=== PATIENT | female | born 1980 | race Caucasian/White ===

== ENCOUNTER 2025-10-25 11:05 | Emergency (ER) | payer BC ==
[~2025-10-25] VITALS: Ht 160 cm; Wt 61.5 kg
--- NOTE | 2025-10-25 11:37 | ELECTROCARDIOGRAPH REPORT ---
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
[2025-10-25 11:46] LABS: MEAN PLATELET VOLUME 8.1 FL (7.4-10.4); RED CELL DISTRIBUTION WIDTH 13.2 % (11.5-14.5)
[2025-10-25] MEDS: normal saline 1000ML IV soln IVB ONE (11:54)
[2025-10-25 12:12] LABS: CREATININE 0.77 MG/DL (0.40-0.90); TOTAL CARBON DIOXIDE 27.5 MMOL/L (24-32); eCRCL 77 ML/MIN; eGFR 81 ML/MIN
--- NOTE | 2025-10-25 13:01 | RADIOLOGY REPORT ---
OB ULTRASOUND <14 WEEKS: HISTORY: fever s/p miscarriage TECHNIQUE: Multiple real-time grayscale sonographic images of the pelvis with duplex Doppler color flow, spectral and M-mode analysis. TRANSDUCERS: Transabdominal and transvaginal FINDINGS: The uterus measures 8 x 5 x 7cm The cervix was not seen Right ovary measures 3 x 3 x 3 cm with normal Doppler color flow Left ovary measures 3 x 1 x 2 cm. with normal Doppler color flow Irregularly shaped gestational sac measuring 5 mm. No yolk sac is visualized. IMPRESSION: Irregularly shaped gestational sac measuring 5 mm. Gestational sac within the uterus with no identifiable pole or yolk sac. This may be warehouse representative of a blighted versus early . Correlation with follow-up beta hCG levels. Follow-up ultrasound could be performed if clinically indicated.
--- NOTE | 2025-10-25 13:15 | Physician Documentation ---
History of Present Illness Chief Complaint: Complications Stated Complaint: COMP/POSS DNC Time Seen by MD: 11:20 HPI 45-year-old female presenting with a fever and lower abdominal pain that has been ongoing for the past four days. The patient states that about 4-5 days ago she started having a miscarriage. Prior to that she had found out that she was . She started having vaginal bleeding as well as passing some clots. This has eased up but has continued. She now has developed a fever and has had worsening abdominal pain over the past couple of days. She describes the pain as in the lower abdomen and radiating outwards. She has also felt slightly weak. She reports two normal pregnancies proximally 20 in 24 years ago. No other associated symptoms. Medication Reconciliation Allergies: Coded Allergies: sulfamethoxazole (Verified Allergy, Mild, Hives, 10/25/25) trimethoprim (Verified Allergy, Mild, Hives, 10/25/25) Past Medical History Past Medical History: No Pertinent History Past Surgical History: no surgical history Alcohol Use: None Drug Use: none Lives with: Family Lives In: Home Occupation: employed Physical Exam Vital Signs: Temperature: 102.3, Heart Rate: 88, Respiratory Rate: 18, BP: 120/73, Pulse Oximetry: 100, Weight: 61.500 Oxygen Flow Rate: 0 Physical Exam I have reviewed the triage vitals. CONST: Well developed and well nourished. In no acute distress HENT: Head Atraumatic EYES: Pupils are equal, round and reactive to light. Normal conjunctiva NECK: Normal range of motion. Supple. CARDIO: Normal rate and regular rhythm. No murmurs, rubs, or gallops. S1, S2. PULM/CHEST: No respiratory distress. Lungs clear to auscultation. No wheeze ABD: Soft, tenderness to palpation over the suprapubic area. Nondistended. Bowel sounds normal. No guarding. : Exam deferred MSK: No edema. No deformity. NEURO: Alert and oriented to person, place and time. Moving all extremities SKIN: Warm and dry. PSYCH: Normal mood and affect. Good eye contact. Progress Results/Orders Results/Orders Orders - ALISSA MAGAÑA MD Culture Blood (10/25/25 11:21) Urinalysis, Cult If Indicated (10/25/25 11:21) Hs Troponin I W Calculations (10/25/25 13:21) US OB (10/25/25 11:21) Completed Orders - ALISSA MAGAÑA MD Electrocardiogram (10/25/25 11:21) Cbc/Diff (10/25/25 11:21) MG (10/25/25 11:21) Normal Saline 1000ml (0.9% Sodium Chlori (10/25/25 11:25) CMP (10/25/25 11:21) Hs Troponin I W Calculations (10/25/25 11:21) Lacticsepsis (10/25/25 11:21) US OB (10/25/25 11:21) Gentamicin Inj (Gentamicin Inj) (10/25/25 11:26) Clindamycin 600mg/D5w 50ml (Cleocin 600m (10/25/25 11:30) Acetaminophen 325mg Tablet (Tylenol Tabl (10/25/25 11:30) Acetaminophen 325mg Tablet (Tylenol Tabl (10/25/25 11:55) Medications Received in ER Medications (Trade) Dose Ordered Sig/Charlene Route PRN Reason Start Time Stop Time Status Last Admin Dose Admin (0.9% sodium chloride (NS) 1000ml IV soln) 1,000 ml ONCE ONCE IVB 10/25/25 11:25 10/25/25 11:31 DC 10/25/25 11:54 1,000 ML Clindamycin HCl/ Dextrose 50 ml @ 100 mls/hr ONCE ONCE IV 10/25/25 11:30 10/25/25 11:59 DC 10/25/25 11:54 100 MLS/HR Vital Signs 10/25/25 11:13 Temp 102.3 Pulse 88 Resp 18 B/P (MAP) 120/73 Pulse Ox 100 O2 Flow Rate 0 Laboratory Tests Test 10/25/25 11:36 White Blood Count 4.5 Red Blood Count 4.54 Hemoglobin 13.1 Hematocrit 38.6 Mean Corpuscular Volume 84.9 Mean Corpuscular Hemoglobin 28.9 Mean Corpuscular Hemoglobin Concent 34.0 Red Cell Distribution Width 13.2 Platelet Count 248 Mean Platelet Volume 8.1 Neutrophils (%) (Auto) 72.3 Lymphocytes (%) (Auto) 15.2 L Monocytes (%) (Auto) 12.0 Eosinophils (%) (Auto) 0.1 Basophils (%) (Auto) 0.4 Neutrophils # (Auto) 3.2 Lymphocytes # (Auto) 0.7 L Monocytes # (Auto) 0.5 Eosinophils # (Auto) 0.0 Basophils # (Auto) 0.0 CBC Comment Sodium Level 138 Potassium Level 3.8 Chloride Level 103 Carbon Dioxide Level 27.5 Anion Gap 8 Blood Urea Nitrogen 7 Creatinine 0.77 Estimated GFR/1.73 m2 81 BUN/Creatinine Ratio 9.1 L Glucose Level 100 Lactic Acid Level 1.0 Calcium Level 8.6 Magnesium Level 2.2 Total Bilirubin 0.4 Aspartate Amino Transf (AST/SGOT) 12 Alanine Aminotransferase (ALT/SGPT) 21 Alkaline Phosphatase 29 L Troponin I High Sensitivity < 4 L Troponin I High Sens Percent Delta Troponin I Hi Sens Absolute Change Total Protein 7.9 Albumin 4.0 Globulin 3.9 Albumin/Globulin Ratio 1.0 L Chemistry Comments EKG/XRAY/CT/US/VASC/MRI EKG : Additional Comment EKG as interpreted by ED MD indicating normal sinus rhythm at a rate of 79 beats per minute, no ischemia, normal axis Ultrasound : Impression OB ULTRASOUND <14 WEEKS: HISTORY: fever s/p miscarriage TECHNIQUE: Multiple real-time grayscale sonographic images of the pelvis with duplex Doppler color flow, spectral and M-mode analysis. TRANSDUCERS: Transabdominal and transvaginal FINDINGS: The uterus measures 8 x 5 x 7cm The cervix was not seen Right ovary measures 3 x 3 x 3 cm with normal Doppler color flow Left ovary measures 3 x 1 x 2 cm. with normal Doppler color flow Irregularly shaped gestational sac measuring 5 mm. No yolk sac is visualized. IMPRESSION: Irregularly shaped gestational sac measuring 5 mm. Gestational sac within the uterus with no identifiable pole or yolk sac. This may be dental detail representative of a blighted versus early . Correlation with follow-up beta hCG levels. Follow-up ultrasound could be performed if clinically indicated. Medical Decision Making Differential Dx:Considerations: -Complete, -Incomplete, -Inevitable, -Missed, -Threatened, Abruptio placentae Additional Comments 45-year-old female presenting for what appears to be an incomplete miscarriage. Labs and imaging were ordered. Her lab workup is grossly unremarkable. Her hCG level is 268. A OB pelvic ultrasound indicated a gestational sac without a pole or yolk sac. It appears the patient likely has had an incomplete miscarriage. However given the she was febrile there is possibility of potential endometritis. Patient was started on IV clindamycin and gentamicin. She was given 1 g of p.o. acetaminophen. I did discuss the case with ED ph ysician at [facility] who accepted the patient for transfer and OBGYN consultation. I did consider all chronic medical conditions as well as social determinants of health. Patient to be transferred by ambulance. Departure Disposition: 02 SHORT TERM HOSPITAL Impression: Primary Impression: Incomplete miscarriage Additional Impression: Endometritis Referrals: NO PRIMARY CARE PROVIDER (PCP) Signature Scribe Signature: - Attestation: - ALISSA MAGAÑA MD Oct 25, 2025 13:15
[2025-10-25 13:56] LABS: INFLUENZA TYPE A ANTIGEN RAPID NEGATIVE (Negative); INFLUENZA TYPE B ANTIGEN RAPID NEGATIVE (Negative)
[2025-10-25 14:15] LABS: COVID19 ANTIGEN BINAX NEGATIVE (NEGATIVE)
[2025-10-25 14:34] LABS: LEUKOCYTE ESTERASE ,URINE NEGATIVE (Neg); NITRITES, URINE NEGATIVE (Neg); OCCULT BLOOD,URINE SMALL (Neg)
[2025-10-25 14:40] LABS: UA COLLECTION TYPE CLN CATCH MIDSTREAM
[2025-10-25 14:42] LABS: MUCUS STRANDS NONE SEEN /LPF (Neg); SQUAMOUS EPITHELIAL CELL,UR MODERATE /LPF (FEW)
[2025-10-25 20:51] VITALS: BP 123/77; PULSE 90; RESP 16; TEMP 98.1; O2SAT 99
== END 2025-10-25 20:55 | disposition short-term general hospital (02) ==
LOC: ER 11:06
DX: O03.4 Incomplete spontaneous abortion without complication (principal); I49.8 Other specified cardiac arrhythmias; R53.1 Weakness; R10.20 Pelvic and perineal pain unspecified side; Z88.2 Allergy status to sulfonamides; Z87.59 Personal history of other complications of pregnancy, childbirth and the puerperium; Z88.8 Allergy status to other drugs, medicaments and biological substances; Z20.822 Contact with and (suspected) exposure to COVID-19
CPT/HCPCS: 36415; 76801; 76817; 80053; 81001; 83605; 83735; 84484; 84702; 85025; 87040; 87804; 87811; 93005; 93976; 96365; 96375; 99285; J1580; J3490; J7030